=== PATIENT | male | born 1965 | race Caucasian/White ===

== ENCOUNTER 2022-10-08 06:59 | Day surgery (SDC) | payer BC ==
[~2022-10-08 06:59] MED LIST: Dextrose 5%-0.45% NaCl 1,000 ML IV SCH; Sodium Chloride 0.9% 10 ML Syringe FLUSH PRN; Sodium Chloride 0.9% 10 ML Syringe FLUSH SCH
[2022-10-08] MEDS ORDERED: Dextrose 5%-0.45% NaCl 1,000 ML IV SCH (07:30)
[2022-10-08] MEDS ORDERED: fentaNYL 100 MCG/2 ML SDV ONE (08:11)
[2022-10-08] MEDS ORDERED: Midazolam 1 MG/ML 2 ML SDV ONE (08:11)
[2022-10-08] MEDS ORDERED: fentaNYL 100 MCG/2 ML SDV IV ONE ×2 (08:15)
[2022-10-08] MEDS ORDERED: Midazolam 1 MG/ML 2 ML SDV IV ONE ×5 (08:16→08:23)
[2022-10-08 09:58] VITALS: BP 127/83; PULSE 70
== END 2022-10-08 09:59 | disposition home or self-care (01) ==
LOC: DL.ENDO 06:59
PROVIDERS: ATTEND Internal Medicine Gastroenterology
DX: Z12.11 Encounter for screening for malignant neoplasm of colon (principal); E66.09 Other obesity due to excess calories; K21.9 Gastro-esophageal reflux disease without esophagitis; K70.31 Alcoholic cirrhosis of liver with ascites; R94.5 Abnormal results of liver function studies; Z85.038 Personal history of other malignant neoplasm of large intestine; Z86.16 Personal history of COVID-19; Z68.31 Body mass index [BMI] 31.0-31.9, adult; Z79.899 Other long term (current) drug therapy
CPT/HCPCS: 45378; J2250; J3010; J7042